=== PATIENT | male | born 1990 | race Caucasian/White ===

== ENCOUNTER 2019-02-16 21:30 | Emergency (ER) | payer MEDICARE, MEDICAID ==
[~2019-02-16] VITALS: Ht 167.6 cm; Wt 72.6 kg
[~2019-02-16 21:30] MED LIST: ABILIFY 2 MG2 MG PO; ADDERALL; ALBUTEROL INH; FLOVENT DISKUS50 MCG; XANAX 1 MG TABLE1 MG PO
[2019-02-16 21:50] VITALS: BP 143/104
== END 2019-02-16 21:57 | disposition home or self-care (01) ==
LOC: M.ERS 21:30
DX: R21 Rash and other nonspecific skin eruption (principal); F31.9 Bipolar disorder, unspecified; F90.9 Attention-deficit hyperactivity disorder, unspecified type; F17.210 Nicotine dependence, cigarettes, uncomplicated; Z88.0 Allergy status to penicillin; W57.XXXA Bitten or stung by nonvenomous insect and other nonvenomous arthropods, initial encounter; Y92.89 Other specified places as the place of occurrence of the external cause; Y93.89 Activity, other specified; Y99.8 Other external cause status